=== PATIENT | female | born 1945 | race Caucasian/White ===

== ENCOUNTER 2020-01-28 20:31 | Inpatient (IN) ==
[2020-01-28] MEDS ORDERED: NICOTINE 21 MG/24 HR PATCH TRANSDERM PRN (22:40)
[2020-01-28] MEDS ORDERED: hydrALAZINE 20 MG/1 ML VIAL IV PRN (22:40)
[2020-01-28] MEDS ORDERED: DOCUSATE SODIUM 100 MG CAPSULE PO PRN (22:40)
[2020-01-28] MEDS ORDERED: diphenhydrAMINE CAP 25 MG CAPSULE PO PRN (22:40)
[2020-01-28] MEDS ORDERED: ZALEPLON 5 MG CAPSULE PO PRN (22:40)
[2020-01-28] MEDS ORDERED: PROMETHAZINE 25 MG/1 ML VIAL IM PRN (22:40)
[2020-01-28 23:13] LABS: Basophils % 0.4 % (0.0-0.8); Eosinophils % 0.6 % (0.00-10.9); Hematocrit 42.1 VOL% (35.7-47.0); Hemoglobin 12.9 GM/DL (12.0-16.0); Immature Granulocytes % 0.4 %; Immature Granulocytes Absolute 0.03 #; Lymphocytes # 1.2 10*3/uL (1.4-4.0); Lymphocytes % 16.9 % (21.3-54.2); Mean Corpuscular HGB Conc 30.6 GM/DL (32-36); Mean Corpuscular Volume 96.8 FL (87-102); Mean Platelet Volume 9.9 FL (9.6-12.0); Monocytes % 6.8 % (1.7-12.7); Neutrophils % 74.9 % (38.7-73.9); Platelet Count 189 T/CUMM (130-400); Red Blood Count 4.35 MC/CUMM (3.8-5.5); Red Cell Distribution Width 13.7 % (9.3-17.3); White Blood Count 7.1 T/CUMM (4-12)
[2020-01-28 23:26] LABS: Albumin 3.1 G/DL (3.4-5.0); Bilirubin,Direct 1.12 MG/DL (0.0-0.20); Bilirubin,Indirect 0.5 MG/DL (0.0-1.0); Bilirubin,Total 1.6 MG/DL (0.2-1.0); Calcium 8.6 MG/DL (8.5-10.1); Osmolality,Calculated 278.7 MOS/KG (273-304); Total Protein 6.8 G/DL (6.4-8.3)
[2020-01-28] MEDS ORDERED: SODIUM CHLORIDE 0.9% 1,000 ML IV ONE (23:44)
[2020-01-29] MEDS: metroNIDAZOLE INJ 500 MG in PREMIX 1 EACH IV SCH ×3 (01:46→15:37)
[2020-01-29] MEDS: cefTRIAXone 1,000 MG in SYRINGE 1 EACH IV SCH (01:46)
[2020-01-29] MEDS: SODIUM CHLORIDE 0.9% 1,000 ML IV SCH ×3 (01:47→21:21)
[2020-01-29] MEDS: ACETAMINOPHEN 325 MG TABLET PO PRN (03:56)
[2020-01-29 07:16] LABS: Basophils % 0.2 % (0.0-0.8); Eosinophils % 0.2 % (0.00-10.9); Hematocrit 39.1 VOL% (35.7-47.0); Hemoglobin 12.1 GM/DL (12.0-16.0); Immature Granulocytes % 0.3 %; Immature Granulocytes Absolute 0.02 #; Lymphocytes % 16.1 % (21.3-54.2); Mean Corpuscular HGB Conc 30.9 GM/DL (32-36); Mean Corpuscular Volume 96.3 FL (87-102); Mean Platelet Volume 10.6 FL (9.6-12.0); Monocytes % 6.4 % (1.7-12.7); Neutrophils % 76.8 % (38.7-73.9); Platelet Count 184 T/CUMM (130-400); Red Blood Count 4.06 MC/CUMM (3.8-5.5); Red Cell Distribution Width 13.9 % (9.3-17.3); White Blood Count 6.1 T/CUMM (4-12)
[2020-01-29 07:31] LABS: Albumin 2.8 G/DL (3.4-5.0); Bilirubin,Total 0.8 MG/DL (0.2-1.0); Calcium 8.1 MG/DL (8.5-10.1); Osmolality,Calculated 284.1 MOS/KG (273-304); Total Protein 6.3 G/DL (6.4-8.3)
[2020-01-29 07:44] LABS: Risk Ratio 2.23; VLDL CHOLESTEROL 14.6 MG/DL
[2020-01-29] MEDS: MORPHINE 4 MG/1 ML VIAL IV PRN ×3 (10:37→20:50)
[2020-01-29] MEDS: ONDANSETRON 4 MG/2 ML VIAL IV PRN ×2 (15:50→20:52)
[2020-01-30] MEDS: cefTRIAXone 1,000 MG in SYRINGE 1 EACH IV SCH (01:24)
[2020-01-30] MEDS: metroNIDAZOLE INJ 500 MG in PREMIX 1 EACH IV SCH ×2 (01:24→08:54)
[2020-01-30 06:20] LABS: Basophils % 0.3 % (0.0-0.8); Eosinophils % 0.4 % (0.00-10.9); Hematocrit 37.9 VOL% (35.7-47.0); Hemoglobin 11.9 GM/DL (12.0-16.0); Immature Granulocytes % 0.4 %; Immature Granulocytes Absolute 0.03 #; Lymphocytes # 0.9 10*3/uL (1.4-4.0); Lymphocytes % 11.4 % (21.3-54.2); Mean Corpuscular HGB Conc 31.4 GM/DL (32-36); Mean Corpuscular Volume 96.7 FL (87-102); Mean Platelet Volume 10.2 FL (9.6-12.0); Monocytes % 7.8 % (1.7-12.7); Neutrophils % 79.7 % (38.7-73.9); Platelet Count 169 T/CUMM (130-400); Red Blood Count 3.92 MC/CUMM (3.8-5.5); Red Cell Distribution Width 14.3 % (9.3-17.3); White Blood Count 7.6 T/CUMM (4-12)
[2020-01-30 06:31] LABS: Calcium 8.2 MG/DL (8.5-10.1)
[2020-01-30 06:35] LABS: Albumin 2.6 G/DL (3.4-5.0); Bilirubin,Direct 2.5 MG/DL (0.0-0.20); Bilirubin,Indirect 1.6 MG/DL (0.0-1.0); Bilirubin,Total 4.1 MG/DL (0.2-1.0); Total Protein 6.1 G/DL (6.4-8.3)
[2020-01-30] MEDS: ACETAMINOPHEN 325 MG TABLET PO PRN (07:29)
[2020-01-30] MEDS: MORPHINE 4 MG/1 ML VIAL IV PRN (08:59)
[2020-01-30] MEDS ORDERED: HYDROmorphone 2 MG/1 ML VIAL IV PRN ×2 (11:57)
[2020-01-30] MEDS: SODIUM CHLORIDE 0.9% 1,000 ML IV SCH (12:18)
[2020-01-30] MEDS: PIPERACILLIN/TAZOBACTAM 3,375 MG in SODIUM CHLORIDE 0.9% 100 ML IV SCH ×2 (12:33→21:57)
[2020-01-30] MEDS: LACTATED RINGERS 1,000 ML IV SCH (12:34)
[2020-01-31] MEDS: LACTATED RINGERS 1,000 ML IV SCH ×4 (02:09→17:32)
[2020-01-31] MEDS: PIPERACILLIN/TAZOBACTAM 3,375 MG in SODIUM CHLORIDE 0.9% 100 ML IV SCH ×2 (04:57→12:22)
[2020-01-31] MEDS: ACETAMINOPHEN 325 MG TABLET PO PRN (05:39)
[2020-01-31 06:21] LABS: Basophils % 0.3 % (0.0-0.8); Eosinophils # 0.1 10*3/uL (0.0-0.87); Eosinophils % 0.8 % (0.00-10.9); Hematocrit 35.6 VOL% (35.7-47.0); Hemoglobin 11.3 GM/DL (12.0-16.0); Immature Granulocytes % 0.7 %; Immature Granulocytes Absolute 0.05 #; Lymphocytes # 1.3 10*3/uL (1.4-4.0); Lymphocytes % 17.8 % (21.3-54.2); Mean Corpuscular HGB Conc 31.7 GM/DL (32-36); Mean Corpuscular Volume 95.2 FL (87-102); Mean Platelet Volume 10.7 FL (9.6-12.0); Neutrophils % 73.4 % (38.7-73.9); Platelet Count 170 T/CUMM (130-400); Red Blood Count 3.74 MC/CUMM (3.8-5.5); Red Cell Distribution Width 14.6 % (9.3-17.3); White Blood Count 7.5 T/CUMM (4-12)
[2020-01-31 06:27] LABS: INR 1.2; PT Patient Result 12.5 SECS (9.6-12.2)
[2020-01-31] MEDS ORDERED: LEVOTHYROXINE 75 MCG TABLET PO SCH (06:30)
[2020-01-31 06:39] LABS: Albumin 2.4 G/DL (3.4-5.0); Bilirubin,Total 3.7 MG/DL (0.2-1.0); Calcium 8.3 MG/DL (8.5-10.1)
[2020-01-31] MEDS ORDERED: LACTATED RINGERS 1,000 ML IV SCH (08:00)
[2020-01-31] MEDS ORDERED: INDOMETHACIN SUPP 50 MG SUPP RECTAL ONE (08:00)
[2020-01-31 16:13] VITALS: BP 127/59
[2020-02-01] MEDS ORDERED: ENOXAPARIN 40 MG/0.4 ML SYRINGE SUBCUT SCH (09:00)
== END 2020-01-31 17:46 | disposition hospice, home (50) | DRG 439 ==
LOC: SUATTDRO 22:07 → N.3E 22:07
PROVIDERS: ADMIT Internal Medicine; ATTEND Family Medicine